=== PATIENT | male | born 1980 ===

== ENCOUNTER 2017-05-18 21:09 | Emergency (ER) | payer BC ==
[~2017-05-18] VITALS: Ht 170.2 cm; Wt 101.8 kg
[2017-05-18 21:15] VITALS: TEMP 36.7; Ht 170.2 cm; Wt 101.8 kg
[2017-05-18] MEDS ORDERED: ONDANSETRON 4MG OD TAB PO ONE (21:30)
--- NOTE | 2017-05-18 21:34 | EMERGENCY ROOM VISIT NOTE ---
History Report prepared by Jazmyn: Derek Ribeiro Under the Supervision of: Dr. Aditya Staples M.D. First contact with patient: 21:19 Chief Complaint: VOMITING Stated Complaint: VOMITING,SHAKING History of Present Illness The patient is a 36 year old male who presents to the Emergency Room with complaints of intermittent vomiting that began today. The patient states that today he had a bloody Yuly at 0800 and ate breakfast. He reports that he went to [employer] and had a couple of drinks. The patient states that at the football game he started to feel nauseous. He reports that he went out to the parking lot , vomited, and had a syncopal episode. The patient is accompanied by his who states that the patient became aggressive with the bag loader machine operator when he was woken up. She states that he was saying things that she has never heard him say and was not himself. The patient states that he is currently experiencing chills and vomited before coming into the ED. The patient states that he experienced similar symptoms recently. The patient states that two weeks ago he had four beers, which is a normal amount for the patient. He states that he went home that evening and was shaking and his blood pressure was fluctuating. He states that he went to the ED and had an EKG and lab work done, but admits there was no pertinent results. The patient admits to a history of hypertension, which he takes Lisinopril and Amlodipine for. The patient denies taking medications or drugs, hitting his head, urinary symptoms, burning during urination, diarrhea, and constipation. Source of History: patient, spouse/significant other Onset: today Position: other (global) Quality: other (vomiting) Timing: intermittent Modifying Factors (Worsening): other (alcohol) Associated Symptoms: + LOC, + chills, + nausea, + vomiting, No diarrhea, No urinary symptoms Review of Systems All systems have been listed, reviewed, and are negative other than those previously mentioned. Please see Additional Medical History Sheet. Past Medical & Surgical Medical Problems: (1) HTN (hypertension) Family History Cancer Diabetes mellitus Heart disease Hypertension Social History Smoking Status: Never Smoker Alcohol Use: occasionally Drug Use: none Marital Status: Housing Status: lives with family Occupation Status: employed Current/Historical Medications Scheduled Amlodipine (Norvasc), 10 MG PO DAILY Lisinopril (Lisinopril), 40 MG PO DAILY Montelukast Sodium (Singulair), 10 MG PO DAILY Allergies Coded Allergies: Ibuprofen (Verified Allergy, Severe, HIVES, 05/18/17) Penicillins (Verified Allergy, Unknown, HAPPENED A CHILD, 05/18/17) Physical Exam Vital Signs Date Time Temp Pulse Resp B/P (MAP) Pulse Ox O2 Delivery O2 Flow Rate FiO2 05/19/17 00:21 89 19 99 05/19/17 00:06 93 24 99 05/19/17 00:01 156/87 05/18/17 23:51 91 23 98 05/18/17 23:36 91 21 98 05/18/17 23:31 149/76 05/18/17 23:24 93 22 99 05/18/17 23:09 96 17 98 05/18/17 23:01 152/81 05/18/17 22:54 89 15 98 05/18/17 22:39 87 13 100 05/18/17 22:31 133/75 05/18/17 22:30 88 133/75 98 Room Air 05/18/17 22:24 89 19 96 05/18/17 22:09 91 16 98 05/18/17 22:03 90 05/18/17 22:01 143/87 05/18/17 21:58 89 17 140/79 99 Room Air 05/18/17 21:15 36.7 94 18 173/83 100 Room Air Physical Exam GENERAL: Patient awake, alert, oriented x 3. Patient follows commands. Patient does not appear toxic. Patient is adequately hydrated and well- nourished. SKIN: No erythema, pallor, cyanosis or rash HEENT: Normal head, pupils equal, reactive to light and accommodation. Ears have bilateral cerumen impactions. Oral cavity and posterior pharynx appear normal. Mucous membranes are dry. Neck: Supple, nontender. LUNGS: Clear to auscultation. No wheezes, no rales, no rhonchi. HEART: No murmurs. No gallops. No rubs ABDOMEN: No masses, no rebound, no hepatomegaly or splenomegaly. EXTREMITIES: No signs of trauma or infection. No pedal or pretibial edema. No calf or thigh tenderness. NEUROLOGIC: Cranial nerves II-XII within normal limits. No gross motor sensory function deficits. Medical Decision & Procedures Laboratory Results 05/18/17 21:50 Red Blood Count 4.40, Mean Corpuscular Volume 86.4, Mean Corpuscular Hemoglobin 29.5, Mean Corpuscular Hemoglobin Concent 34.2, Mean Platelet Volume 9.7, Neutrophils (%) (Auto) 76.3, Lymphocytes (%) (Auto) 17.4, Monocytes (%) (Auto) 5.6, Eosinophils (%) (Auto) 0.0, Basophils (%) (Auto) 0.5, Neutrophils # (Auto) 3.25, Lymphocytes # (Auto) 0.74, Monocytes # (Auto) 0.24, Eosinophils # (Auto) 0.00, Basophils # (Auto) 0.02 05/18/17 21:50 Test 05/18/17 21:50 05/18/17 22:08 White Blood Count 4.26 K/uL (4.8-10.8) Red Blood Count 4.40 M/uL (4.7-6.1) Hemoglobin 13.0 g/dL (14.0-18.0) Hematocrit 38.0 % (42-52) Mean Corpuscular Volume 86.4 fL (80-100) Mean Corpuscular Hemoglobin 29.5 pg (25-34) Mean Corpuscular Hemoglobin Concent 34.2 g/dl (32-36) Platelet Count 161 K/uL (130-400) Mean Platelet Volume 9.7 fL (7.4-10.4) Neutrophils (%) (Auto) 76.3 % Lymphocytes (%) (Auto) 17.4 % Monocytes (%) (Auto) 5.6 % Eosinophils (%) (Auto) 0.0 % Basophils (%) (Auto) 0.5 % Neutrophils # (Auto) 3.25 K/uL (1.4-6.5) Lymphocytes # (Auto) 0.74 K/uL (1.2-3.4) Monocytes # (Auto) 0.24 K/uL (0.11-0.59) Eosinophils # (Auto) 0.00 K/uL (0-0.5) Basophils # (Auto) 0.02 K/uL (0-0.2) RDW Standard Deviation 40.8 fL (36.4-46.3) RDW Coefficient of Variation 12.8 % (11.5-14.5) Immature Granulocyte % (Auto) 0.2 % Immature Granulocyte # (Auto) 0.01 K/uL (0.00-0.02) Anion Gap 9.0 mmol/L (3-11) Est Creatinine Clear Calc Drug Dose 146.0 ml/min Estimated GFR () 132.7 Estimated GFR (Non- 114.5 BUN/Creatinine Ratio 15.5 (10-20) Calcium Level 8.5 mg/dl (8.5-10.1) Total Bilirubin 0.4 mg/dl (0.2-1) Aspartate Amino Transf (AST/SGOT) 26 U/L (15-37) Alanine Aminotransferase (ALT/SGPT) 33 U/L (12-78) Alkaline Phosphatase 48 U/L (45-117) Troponin I < 0.015 ng/ml (0-0.045) Total Protein 7.4 gm/dl (6.4-8.2) Albumin 3.9 gm/dl (3.4-5.0) Globulin 3.5 gm/dl (2.5-4.0) Albumin/Globulin Ratio 1.1 (0.9-2) Lipase 161 U/L (73-393) Ethyl Alcohol mg/dL 86.0 mg/dl (0-3) Laboratory results as stated above per my review. Medications Administered Medications (Trade) Dose Ordered Sig/N[place]rata Route Start Time Stop Time Status Last Admin Dose Admin Ondansetron HCl (Zofran Odt) 4 mg ONE ONCE PO 05/18/17 21:30 05/18/17 21:31 DC 05/18/17 21:57 4 MG ECG Indication: vomiting Rate (beats per minute): 89 Rhythm: normal sinus Findings: RBBB (incomplete), no acute ischemic change, no ectopy ED Course 2121: Past medical records reviewed. The patient was evaluated in room A03. A complete history and physical examination was performed. 2129: Ordered Ondansetron HCl 4 mg PO. 0008: Upon reevaluation, the patient appeared to have improvement of his symptoms. I discussed today's findings with the patient, including his alcohol level. He verbalized agreement of the treatment plan. The patient was discharged home. Medical Decision Nurses notes reviewed. Medical history sheet reviewed. Differential diagnosis includes but is not limited to: Alcohol overdose, gastritis, dehydration, and syncope. The patient is here with nausea vomiting. Patient apparently passed out earlier today and had an altercation with the police. He now feels better but is still somewhat nauseous. The patient was given Zofran here and that did seem to help. Multiple labs were obtained. Please see above. Alcohol level 10 hours after his last drink was 88. The patient has no evidence of chronic or acute liver disease. Lipase is not elevated. I believe the patient is safe to return home. Medication Reconcilliation Current Medication List: was personally reviewed by me Blood Pressure Screening Patient's blood pressure: Elevated blood pressure Blood pressure disposition: Referred to PCP Impression Primary Impression: Alcohol intoxication Scribe Attestation The scribe's documentation has been prepared under my direction and personally reviewed by me in its entirety. I confirm that the note above accurately reflects all work, treatment, procedures, and medical decision making performed by me. Departure Information Dispostion Home / Self-Care Patient Instructions My [facility] Additional Instructions 1 Zofran every 4 hours as needed for nausea. Drink at least 4 quarts of nonalcohol containing liquid over the next 24 hours.
[2017-05-18] MEDS ORDERED: AMLO-114 PO (21:41)
[2017-05-18] MEDS ORDERED: MONT1TAB3 PO (21:41)
[2017-05-18] MEDS ORDERED: LSN40 PO (21:41)
[2017-05-18 22:23] LABS: BASO % 0.5 %; BASO ABS # 0.02 K/uL (0-0.2); COMPLETE YES; IG% 0.2 %; LYMPH % 17.4 %; LYMPH ABS # 0.74 K/uL (1.2-3.4); MEAN CELL VOLUME 86.4 fL (80-100); MEAN CORPUSCULAR HEMOGLOBIN 29.5 pg (25-34); MEAN CORPUSCULAR HGB CONC 34.2 g/dl (32-36); MEAN PLATELET VOLUME 9.7 fL (7.4-10.4); MONO % 5.6 %; NEUT % 76.3 %; PLATELET COUNT 161 K/uL (130-400); WHITE BLOOD COUNT 4.26 K/uL (4.8-10.8)
[2017-05-18 22:24] LABS: ALT/SGPT 33 U/L (12-78); AST/SGOT 26 U/L (15-37); BLOOD UREA NITROGEN 12 mg/dl (7-18); BUN/CREATININE RATIO 15.5 (10-20); CALCIUM 8.5 mg/dl (8.5-10.1); CARBON DIOXIDE 26 mmol/L (21-32); CHLORIDE 109 mmol/L (98-107); CREATININE 0.78 mg/dl (0.60-1.40); GLUCOSE 109 mg/dl (70-99); POTASSIUM 3.6 mmol/L (3.5-5.1); SODIUM 144 mmol/L (136-145)
[2017-05-18 22:28] LABS: ALB/GLOB RATIO 1.1 (0.9-2); ALKALINE PHOSPHATASE 48 U/L (45-117)
[2017-05-19] MEDS ORDERED: ONDANSETRON HOME PACK 4MG OD TAB PO ONE (00:30)
[2017-05-19 01:16] VITALS: BP 136/68; PULSE 84; O2SAT 98
== END 2017-05-19 01:17 | disposition home or self-care (01) ==
LOC: EDBD 21:10 → C.EDB 21:10 → C.EDA 05-19 01:17
DX: F10.129 Alcohol abuse with intoxication, unspecified (principal); I10 Essential (primary) hypertension; Z83.3 Family history of diabetes mellitus; Z82.49 Family history of ischemic heart disease and other diseases of the circulatory system